=== PATIENT | male | born 1975 | race Hispanic/Latino ===

== ENCOUNTER 2021-10-23 13:53 | Inpatient (IN) | payer OTHER ==
[~2021-10-23] VITALS: Ht 175.3 cm; Wt 182.4 kg
[2021-10-23] MEDS: 0.9%NACL 1000ML 1,000 ML IV SCH
[2021-10-23] MEDS ORDERED: ONDANSETRON 4MG INJ IVP ONE (14:30)
[2021-10-23] MEDS ORDERED: LACTATED RINGERS 1000ML 1,000 ML IV ONE ×2 (14:30→18:00)
[2021-10-23] MEDS ORDERED: ZOSYN 3.375GM +NS 50ML IV ONE (14:30)
[2021-10-23 14:39] LABS: BASOPHILS % (AUTO) 0.3 % (0.0-5.0); EOSINOPHILS % (AUTO) 1.2 % (0.0-8.0); HEMATOCRIT 36.4 % (42-54); LYMPHOCYTES % (AUTO) 8.5 % (21.0-51.0); MEAN CORPUSCULAR HEMOGLOBIN 27.4 pg (27.0-33.0); MEAN CORPUSCULAR HGB CONC 31.9 g/dL (32.0-36.0); MEAN CORPUSCULAR VOLUME 86.1 fL (79-99); MONOCYTES % (AUTO) 5.6 % (3.0-13.0); PLATELET COUNT (AUTO) 260 K/uL (130-400); RED BLOOD CELL COUNT(AUTO) 4.23 MIL/uL (4.50-6.20); RED CELL DISTRIBUTION WIDTH 15.5 % (11.0-15.5); WHITE BLOOD COUNT (AUTO) 10.2 K/uL (4.8-10.8)
[2021-10-23 14:52] LABS: INR 1.13 (0.85-1.15); PROTHROMBIN TIME 12.2 SEC (9.6-11.6)
[2021-10-23 14:53] LABS: PARTIAL THROMBOPLASTIN TIME 30.2 SEC (26.3-35.5)
[2021-10-23 14:58] LABS: ALBUMIN 2.9 g/dL (3.5-5.0); BILIRUBIN,TOTAL 0.7 mg/dL (0.2-1.0); CREATININE 2.8 mg/dL (0.5-1.5); POTASSIUM 3.5 mmol/L (3.5-5.1); TOTAL PROTEIN, SERUM 7.8 g/dL (6.0-8.3)
[2021-10-23] MEDS ORDERED: NOREPINEPHRIN 4MG/NS 250ML 250 ML IV ONE (17:46)
[2021-10-23 17:49] LABS: APPEARANCE,URINE CLOUDY (CLEAR); BILIRUBIN,URINE MODERATE (NEGATIVE); COLOR,URINE ORANGE (YELLOW); GLUCOSE, URINE (UA) 100 mg/dL (NEGATIVE); KETONES,URINE 5 mg/dL (NEGATIVE); LEUKOCYTE ESTERASE ,URINE MODERATE (NEGATIVE); NITRATE,URINE POSITIVE (NEGATIVE); OCCULT BLOOD,URINE TRACE-INTACT (NEGATIVE); PROTEIN,URINE >=300 mg/dL (NEGATIVE); UROBILINOGEN,URINE >=8.0 mg/dL (0.2-1.0)
[2021-10-23 18:00] LABS: BACTERIA,URINE Few /HPF (None Seen); WBC,URINE 51-100 /HPF (0-1)
[2021-10-23] MEDS ORDERED: MORPHINE 2 MG SYG IV PRN (18:00)
[2021-10-23] MEDS ORDERED: ACETAMINOPHEN 325 MG TAB PO PRN (18:00)
[2021-10-23] MEDS ORDERED: 0.9%NACL 1000ML 2,121 ML IV ONE (18:00)
[2021-10-23] MEDS ORDERED: MORPHINE 4 MG SYG IV PRN (18:00)
[2021-10-23] MEDS ORDERED: ONDANSETRON 4MG INJ IV PRN (18:00)
[2021-10-23] MEDS ORDERED: NOREPINEPHRIN 4MG/NS 250ML 250 ML IV SCH (18:00)
[2021-10-23 18:01] LABS: SQUAMOUS EPITHELIAL CELL,UR Moderate /HPF (0-2)
[2021-10-23] MEDS: FAMOTIDINE 20MG VIAL IV SCH (20:17)
[2021-10-23] MEDS: ZOSYN 3.375GM+NS 50ML 50 ML IV SCH (21:00)
[2021-10-23] MEDS: HEPARIN 5,000 UNIT VIAL SQ SCH (21:58)
[2021-10-24] VITALS (19 sets, daily range): BP systolic 109–150; BP diastolic 41–87
[2021-10-24] MEDS ORDERED: PROP10TA10 PO (01:02)
[2021-10-24] MEDS ORDERED: GLIP5TAB11 PO (01:02)
[2021-10-24] MEDS ORDERED: OMEP40CA21 PO (01:02)
[2021-10-24] MEDS ORDERED: ASPI-1005 PO (01:02)
[2021-10-24] MEDS ORDERED: ROSU5TAB12 PO (01:02)
[2021-10-24] MEDS ORDERED: HYDR25TA PO (01:02)
[2021-10-24] MEDS ORDERED: METF-446 PO (01:02)
[2021-10-24 04:07] LABS: BASOPHILS % (AUTO) 0.5 % (0.0-5.0); EOSINOPHILS % (AUTO) 2.3 % (0.0-8.0); HEMATOCRIT 31.5 % (42-54); LYMPHOCYTES % (AUTO) 23.9 % (21.0-51.0); MEAN CORPUSCULAR HEMOGLOBIN 27.2 pg (27.0-33.0); MEAN CORPUSCULAR HGB CONC 31.4 g/dL (32.0-36.0); MEAN CORPUSCULAR VOLUME 86.5 fL (79-99); MONOCYTES % (AUTO) 14.1 % (3.0-13.0); NEUTROPHILS % (AUTO) 58.7 % (40.0-77.0); PLATELET COUNT (AUTO) 184 K/uL (130-400); RED BLOOD CELL COUNT(AUTO) 3.64 MIL/uL (4.50-6.20); RED CELL DISTRIBUTION WIDTH 15.6 % (11.0-15.5); WHITE BLOOD COUNT (AUTO) 6.1 K/uL (4.8-10.8)
[2021-10-24 04:24] LABS: HEMOGLOBIN A1C 8.1 % (4.0-6.0)
[2021-10-24 04:27] LABS: CREATININE 2.3 mg/dL (0.5-1.5); MAGNESIUM 1.3 mg/dL (1.80-2.40); PHOSPHORUS 3.1 mg/dL (2.5-4.9); POTASSIUM 3.3 mmol/L (3.5-5.1)
[2021-10-24] MEDS: ZOSYN 3.375GM+NS 50ML 50 ML IV SCH ×3 (05:00→22:26)
[2021-10-24] MEDS ORDERED: POTASSIUM CHLORIDE 10% ELIXIR 20 MEQ/15 ML UDCUP PO PRN (05:30)
[2021-10-24] MEDS ORDERED: 0.9%NACL 50ML 50 ML IV ONE (05:47)
[2021-10-24] MEDS: INSULIN HUMULIN R 100 UNIT/ML 3ML SQ SCH ×4 (07:20→21:00)
[2021-10-24] MEDS: FAMOTIDINE 20MG VIAL IV SCH (08:32)
[2021-10-24] MEDS: HEPARIN 5,000 UNIT VIAL SQ SCH ×2 (08:34→22:26)
[2021-10-24] MEDS: 0.9%NACL 1000ML 1,000 ML IV SCH ×2 (12:55→14:00)
[2021-10-24] MEDS ORDERED: TRAMADOL HCL 50 MG TABLET PO PRN ×2 (14:00)
[2021-10-24] MEDS ORDERED: TAMSULOSIN HCL 0.4 MG CAP.ER.24H PO SCH (14:00)
[2021-10-24] MEDS ORDERED: ACETAMINOPHEN 500 MG TABLET PO PRN (14:00)
[2021-10-24] MEDS: MAGNESIUM 2GM PREMIX 50ML 50 ML IV SCH (14:44)
[2021-10-24] MEDS ORDERED: KCL 20 MEQ ERTAB PO ONE (14:46)
[2021-10-24] MEDS: TAMSULOSIN HCL 0.4 MG CAP.ER.24H PO SCH (14:47)
[2021-10-25] VITALS (7 sets, daily range): BP systolic 118–143; BP diastolic 49–76
[2021-10-25] MEDS: 0.9%NACL 1000ML 1,000 ML IV SCH (02:55)
[2021-10-25 03:54] LABS: BASOPHILS % (AUTO) 0.2 % (0.0-5.0); EOSINOPHILS % (AUTO) 3.1 % (0.0-8.0); HEMATOCRIT 31.3 % (42-54); LYMPHOCYTES % (AUTO) 30.9 % (21.0-51.0); MEAN CORPUSCULAR HEMOGLOBIN 27.5 pg (27.0-33.0); MEAN CORPUSCULAR HGB CONC 31.6 g/dL (32.0-36.0); MEAN CORPUSCULAR VOLUME 86.9 fL (79-99); MONOCYTES % (AUTO) 12.1 % (3.0-13.0); NEUTROPHILS % (AUTO) 53.3 % (40.0-77.0); PLATELET COUNT (AUTO) 213 K/uL (130-400); RED CELL DISTRIBUTION WIDTH 15.6 % (11.0-15.5); WHITE BLOOD COUNT (AUTO) 4.9 K/uL (4.8-10.8)
[2021-10-25 04:26] LABS: ALBUMIN 2.3 g/dL (3.5-5.0); BILIRUBIN,TOTAL 0.5 mg/dL (0.2-1.0); CREATININE 1.1 mg/dL (0.5-1.5); CRP QUANTITATIVE 103.7 mg/L (0.00-9.0); MAGNESIUM 1.5 mg/dL (1.80-2.40); PHOSPHORUS 2.6 mg/dL (2.5-4.9); POTASSIUM 3.3 mmol/L (3.5-5.1); TOTAL PROTEIN, SERUM 6.7 g/dL (6.0-8.3)
[2021-10-25 05:33] LABS: ERYTHROCYTE SEDIMENTATION RATE 95 MM/HR (0-15)
[2021-10-25] MEDS: INSULIN HUMULIN R 100 UNIT/ML 3ML SQ SCH ×4 (05:35→21:00)
[2021-10-25] MEDS: MAGNESIUM 2GM PREMIX 50ML 50 ML IV SCH ×2 (05:39→09:27)
[2021-10-25] MEDS: ZOSYN 3.375GM+NS 50ML 50 ML IV SCH ×3 (05:39→21:38)
[2021-10-25] MEDS: KCL 20 MEQ ERTAB PO PRN ×2 (05:40→09:28)
[2021-10-25] MEDS: FAMOTIDINE 20MG VIAL IV SCH (09:17)
[2021-10-25] MEDS: TAMSULOSIN HCL 0.4 MG CAP.ER.24H PO SCH (09:17)
[2021-10-25] MEDS: HEPARIN 5,000 UNIT VIAL SQ SCH ×2 (09:19→21:37)
[2021-10-25] MEDS: PROPRANOLOL HCL 10 MG TAB PO SCH ×2 (12:13→21:36)
[2021-10-25] MEDS: KCL 20 MEQ ERTAB PO SCH (12:14)
[2021-10-25] MEDS: METFORMIN HCL 500 MG TABLET PO SCH (17:50)
[2021-10-25] MEDS ORDERED: PROPRANOLOL HCL 10 MG TAB PO SCH (21:00)
[2021-10-25] MEDS: FAMOTIDINE 20MG TAB PO SCH (21:36)
[2021-10-26 02:20] LABS: APPEARANCE,URINE CLEAR (CLEAR); BILIRUBIN,URINE NEGATIVE (NEGATIVE); COLOR,URINE YELLOW (YELLOW); GLUCOSE, URINE (UA) NEGATIVE (NEGATIVE); KETONES,URINE NEGATIVE (NEGATIVE); LEUKOCYTE ESTERASE ,URINE TRACE (NEGATIVE); NITRATE,URINE NEGATIVE (NEGATIVE); OCCULT BLOOD,URINE NEGATIVE (NEGATIVE); PROTEIN,URINE NEGATIVE (NEGATIVE); UROBILINOGEN,URINE 0.2 mg/dL (0.2-1.0)
[2021-10-26 02:27] LABS: BACTERIA,URINE Few /HPF (None Seen); RBC,URINE 0-1 /HPF (0-1)
[2021-10-26 04:08] VITALS: BP 137/77
[2021-10-26 04:17] LABS: BASOPHILS % (AUTO) 0.7 % (0.0-5.0); EOSINOPHILS % (AUTO) 4.3 % (0.0-8.0); HEMATOCRIT 32.2 % (42-54); LYMPHOCYTES % (AUTO) 36.8 % (21.0-51.0); MEAN CORPUSCULAR HEMOGLOBIN 26.7 pg (27.0-33.0); MEAN CORPUSCULAR HGB CONC 31.1 g/dL (32.0-36.0); MEAN CORPUSCULAR VOLUME 85.9 fL (79-99); MONOCYTES % (AUTO) 10.5 % (3.0-13.0); NEUTROPHILS % (AUTO) 47.2 % (40.0-77.0); PLATELET COUNT (AUTO) 220 K/uL (130-400); RED BLOOD CELL COUNT(AUTO) 3.75 MIL/uL (4.50-6.20); RED CELL DISTRIBUTION WIDTH 15.8 % (11.0-15.5); WHITE BLOOD COUNT (AUTO) 4.4 K/uL (4.8-10.8)
[2021-10-26 04:34] LABS: ALBUMIN 2.2 g/dL (3.5-5.0); BILIRUBIN,TOTAL 0.3 mg/dL (0.2-1.0); POTASSIUM 3.5 mmol/L (3.5-5.1); TOTAL PROTEIN, SERUM 6.3 g/dL (6.0-8.3)
[2021-10-26] MEDS: ZOSYN 3.375GM+NS 50ML 50 ML IV SCH (04:58)
[2021-10-26] MEDS: KCL 20 MEQ ERTAB PO SCH (04:58)
[2021-10-26] MEDS: INSULIN HUMULIN R 100 UNIT/ML 3ML SQ SCH ×2 (06:04→11:24)
[2021-10-26] MEDS ORDERED: GLIPIZIDE 5 MG TABLET PO SCH (08:00)
[2021-10-26 08:11] VITALS: BP 141/79
[2021-10-26] MEDS ORDERED: ATORVASTATIN 10 MG TABLET PO SCH (09:00)
[2021-10-26] MEDS ORDERED: ASPIRIN 81MG CHEW TAB PO SCH (09:00)
[2021-10-26] MEDS: TAMSULOSIN HCL 0.4 MG CAP.ER.24H PO SCH (09:38)
[2021-10-26] MEDS: FAMOTIDINE 20MG TAB PO SCH (09:38)
[2021-10-26] MEDS: PROPRANOLOL HCL 10 MG TAB PO SCH (09:38)
[2021-10-26] MEDS: HEPARIN 5,000 UNIT VIAL SQ SCH (09:40)
[2021-10-26] MEDS: METFORMIN HCL 500 MG TABLET PO SCH (09:42)
[2021-10-26 11:36] VITALS: BP 135/67
[2021-10-26 15:55] VITALS: BP 119/64
== END 2021-10-26 17:51 | disposition home or self-care (01) | DRG 871 ==
LOC: EDH 13:53 → EDHIP 13:54 → 2CH 23:08 → 4DH 10-24 16:19
PROVIDERS: ADMIT Internal Medicine; ATTEND Internal Medicine
DX: A41.9 Sepsis, unspecified organism (principal); R65.21 Severe sepsis with septic shock; N17.9 Acute kidney failure, unspecified; N39.0 Urinary tract infection, site not specified; Z68.44 Body mass index [BMI] 60.0-69.9, adult; K76.0 Fatty (change of) liver, not elsewhere classified; Z20.822 Contact with and (suspected) exposure to COVID-19; E78.00 Pure hypercholesterolemia, unspecified; E66.01 Morbid (severe) obesity due to excess calories; K80.20 Calculus of gallbladder without cholecystitis without obstruction; Z83.3 Family history of diabetes mellitus; Z87.440 Personal history of urinary (tract) infections; G47.33 Obstructive sleep apnea (adult) (pediatric); E86.0 Dehydration; E11.65 Type 2 diabetes mellitus with hyperglycemia; I10 Essential (primary) hypertension
CPT/HCPCS: 36415; 71045; 74176; 76705; 80048; 80053; 81001; 82550; 82948; 83036; 83605; 83690; 83735; 84100; 84145; 84484; 85025; 85610; 85651; 85730; 86140; 86850; 86900; 86901; 87040; 87088; 87635; 87804; 93005; C9803; G0378; J1644; J2405; J2543; J3475; J3490; J7030; J7120